=== PATIENT | male | born 1960 | race Caucasian/White ===

== ENCOUNTER → 2018-02-08 | Day surgery (SDC) | payer OTHER ==
[2018-01-29 11:42] VITALS: Ht 188 cm; Wt 114.5 kg
[~2018-02-08] VITALS: Ht 188 cm; Wt 114.5 kg
[~2018-02-08] MED LIST: ATOR10TA82 PO; CHOL1TAB46 PO; CLX/20 PO; CRAN1TAB9 PO; FERR1TAB23 PO; GARL1000 PO; GLIM4TAB PO; INSU100I23 SC; LISI-725 PO; METF-384 PO; METO25TA56 PO; MULTTAB58 PO; PANT40TA PO; SODIUM CHLORIDE 0.9% 500ML 500 ML IV ONE
--- NOTE | 2018-02-08 12:27 | Endo History and Physical ---
History & Physical Date of Service: Feb 08, 2018. Chief Complaint: hx carcinoid tumor of ileum,diarrhea Referring Physician: Dr. Tressa Pardo History of Present Illness 58 yo CM who presents for colonoscopy secondary to diarrhea and history of carcinoid tumor of the ileum. Past Medical History Diabetes, Gastrointestinal Disorder, Reflux, Cancer, Sleep Apnea, Hypertension, Kidney Disease, Liver Disease, Depression Past Surgical History Hx Cardiac Surgery: Yes (HEART CATH/NO STENTS) Hx Internal Defibrillator: No Hx Pacemaker: No Hx Abdominal Surgery: No Hx of Implantable Prosthesis: No Hx Post-Op Nausea and Vomiting: No Hx Cancer Surgery: Yes (PARTIAL COLON RESECTION (CARCINOID TUMOR REMOVAL)) Hx Thoracic Surgery: No Hx Orthopedic: No Hx Urinary Tract Surgery: No Family History Polyp Social History Smoking Status: Former Smoker Hx Substance Use: No Hx Alcohol Use: No Allergies Coded Allergies: NO KNOWN DRUG ALLERGIES (Verified Allergy, Unknown, ., 01/29/18) Current Medications Reported Home Medications Medications Dose Route/Sig Max Daily Dose Days Date Category Basaglar Kwikpen (Insulin Glargine) 100 Unit/Ml Inj 72 Units SC HS 01/29/18 Reported Lipitor (Atorvastatin Calcium) 10 Mg Tab 10 Mg PO DAILY 01/29/18 Reported Amaryl (Glimepiride) 4 Mg Tab 2 Mg PO BID 01/29/18 Reported Cranberry (Cranberry (Vaccinium Macrocarp) 300 Mg Tab 1 Tab PO DAILY 01/29/18 Reported Protonix (Pantoprazole Sodium) 40 Mg Tab 40 Mg PO BID 01/29/18 Reported Citalopram Hydrobromide (Citalopram) 20 Mg Tab 1 Tab PO QAM 07/17/16 Reported Vitamin D3 (Cholecalciferol) 5,000 Unit Tab 1 Tab PO QAM 07/17/16 Reported Glucophage (Metformin Hcl) 1,000 Mg Tab 1,000 Mg PO BID 03/08/15 Reported Multivitamin (Multiple Vitamin) 1 Tab Tab 1 Tab PO QAM 02/18/15 Reported Iron (Ferrous Sulfate) 325 Mg Tab 325 Mg PO QAM 02/18/15 Reported Garlic Oil 1000 (Garlic) 2 Mg Cap 1 Cap PO BID 02/18/15 Reported Lopressor (Metoprolol Tartrate) 25 Mg Tab 12.5 Mg PO BID 02/18/14 Reported Zestril (Lisinopril) 20 Mg Tab 20 Mg PO QAM 02/18/14 Reported Vital Signs Weight (Kilograms): 114.55 Height (Feet): 6 Height (Inches): 2 Date Time Temp Pulse Resp B/P (MAP) Pulse Ox O2 Delivery O2 Flow Rate FiO2 02/08/18 12:18 36.3 68 16 152/76 (101) 96 Room Air Physical Exam General Appearance: WD/WN, no apparent distress Respiratory/Chest: Auscultation: breath sounds normal Cardiovascular: Heart Auscultation: RRR Abdomen: Bowel Sounds: normal Inspection & Palpation: soft, non-distended, no tenderness, guarding & rebound Assessment and Plan Assessment: 58 yo CM who presents for colonoscopy secondary to diarrhea and history of carcinoid tumor of the ileum. Plan: Proceed with colonoscopy.
--- NOTE | 2018-02-08 13:22 | Discharge Instructions ---
Endoscopy Patient Instructions Date / Procedure(s) Performed Feb 08, 2018. Colonoscopy Allergy Information Coded Allergies: NO KNOWN DRUG ALLERGIES (Verified Allergy, Unknown, ., 01/29/18) Discharge Date / Findings Feb 08, 2018. Random colon biopsies Rectal polyps Internal hemorrhoids Medication Instructions Stopped Medication(s): last dose Metformin was on Sunday OK to resume all medications today as prescribed Reported Home Medications Medications Dose Route/Sig Max Daily Dose Days Date Category Basaglar Kwikpen (Insulin Glargine) 100 Unit/Ml Inj 72 Units SC HS 01/29/18 Reported Lipitor (Atorvastatin Calcium) 10 Mg Tab 10 Mg PO DAILY 01/29/18 Reported Amaryl (Glimepiride) 4 Mg Tab 2 Mg PO BID 01/29/18 Reported Cranberry (Cranberry (Vaccinium Macrocarp) 300 Mg Tab 1 Tab PO DAILY 01/29/18 Reported Protonix (Pantoprazole Sodium) 40 Mg Tab 40 Mg PO BID 01/29/18 Reported Citalopram Hydrobromide (Citalopram) 20 Mg Tab 1 Tab PO QAM 07/17/16 Reported Vitamin D3 (Cholecalciferol) 5,000 Unit Tab 1 Tab PO QAM 07/17/16 Reported Glucophage (Metformin Hcl) 1,000 Mg Tab 1,000 Mg PO BID 03/08/15 Reported Multivitamin (Multiple Vitamin) 1 Tab Tab 1 Tab PO QAM 02/18/15 Reported Iron (Ferrous Sulfate) 325 Mg Tab 325 Mg PO QAM 02/18/15 Reported Garlic Oil 1000 (Garlic) 2 Mg Cap 1 Cap PO BID 02/18/15 Reported Lopressor (Metoprolol Tartrate) 25 Mg Tab 12.5 Mg PO BID 02/18/14 Reported Zestril (Lisinopril) 20 Mg Tab 20 Mg PO QAM 02/18/14 Reported Provider Instructions Activity Restrictions - No exercising or heavy lifting for 24 hours. - Do not drink alcohol the day of the procedure. - Do not drive a car or operate machinery until the day after the procedure. - Do not make any important decisions or sign important papers in 24 hours after the procedure. Following Day: - Return to full activity which may include returning to work/school. Diet Start your diet with liquids and light foods (jello, soup, juice, toast). Then eat your usual diet if not nauseated. Treatment For Common After Affects For mild abdominal pain, bloating, or excessive gas: - Rest - Eat lightly - Lie on right side Follow-Up Information Follow-up with Dr. Tressa Pardo as scheduled Anesthesia Information What You Should Know You have had a procedure that required some medicine to reduce anxiety and discomfort. This treatment is called moderate sedation. After receiving the treatment, you may be sleepy, but you will be able to breathe on your own. The effects of the treatment may last for several hours. Follow these instructions along with Activity/Diet recommendations noted above: * Do NOT do anything where dizziness or clumsiness would be dangerous. * Rest quietly at home today, then you can be up and about tomorrow. * Have a responsible person stay with you the rest of today. * You may have had an I.V. today. If so, you may take the dressing off later today. Recommendations Call your doctor if: * Trouble breathing * Continuous vomiting for more than 24 hours * Temperature above 101 degrees * Severe abdominal pain or bloating * Pain not relieved by pain medicine ordered * There is increased drainage or redness from any incision * A large amount of rectal bleeding greater than 2-3 tablespoons. (If you had a polyp/s removed or have hemorrhoids, a small amount of blood - from the rectum is to be expected.) * You have any unanswered questions or concerns. IN THE EVENT OF A SERIOUS EMERGENCY, GO TO THE NEAREST EMERGENCY ROOM Your discharge instructions were prepared by provider Lance Arrington. Patient Instructions Signature Page Brock Moya Patient (or Guardian) Signature/Date: I have read and understand the instructions given to me by my caregivers. Caregiver/RN/Doctor Signature/Date: The above-named patient and/or guardian has received patient instructions on this date. + Original Patient Signature Page (only) stays with chart. Please make copy for patient.
--- NOTE | 2018-02-08 13:28 | Anesthesiology Progress Note ---
Anesthesia Post Op Note Date & Time Feb 08, 2018 at 13:28 Vital Signs Pain Intensity: 0 Vital Signs Past 12 Hours Date Time Temp Pulse Resp B/P (MAP) Pulse Ox O2 Delivery O2 Flow Rate FiO2 02/08/18 13:26 75 16 118/70 (86) 92 Room Air 02/08/18 12:18 36.3 68 16 152/76 (101) 96 Room Air Notes Mental Status: alert / awake / arousable, participated in evaluation Pt Amnestic to Procedure: Yes Nausea / Vomiting: adequately controlled Pain: adequately controlled Airway Patency, RR, SpO2: stable & adequate BP & HR: stable & adequate Hydration State: stable & adequate Anesthetic Complications: no major complications apparent
--- NOTE | 2018-02-08 13:35 | GI REPORT ---
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 Estimated Blood Loss: Estimated blood loss: none. Procedure: Pre-Anesthesia Assessment: - Prior to the procedure, a History and Physical was performed, and patient medications and allergies were reviewed. The patient's tolerance of previous anesthesia was also reviewed. The risks and benefits of the procedure and the sedation options and risks were discussed with the patient. All questions were answered, and informed consent was obtained. Prior Anticoagulants: The patient has taken no previous anticoagulant or antiplatelet agents. ASA Grade Assessment: III - A patient with severe systemic disease. After reviewing the risks and benefits, the patient was deemed in satisfactory condition to undergo the procedure. After I obtained informed consent, the scope was passed under direct vision. Throughout the procedure, the patient's blood pressure, pulse, and oxygen saturations were monitored continuously. The scope was introduced through the anus and advanced to the ileocolonic anastomosis. The colonoscopy was performed without difficulty. The patient tolerated the procedure well. The quality of the bowel preparation was good. The terminal ileum and the rectum were photographed. Findings: The perianal and digital rectal examinations were normal. There was evidence of a prior end-to-side ileo-colonic anastomosis in the ascending colon. This was patent and was characterized by healthy appearing mucosa. The anastomosis was traversed. Several random biopsies were obtained with cold forceps for histology in the entire colon. Three sessile polyps were found in the rectum. The polyps were 5 to 6 mm in size. These polyps were removed with a hot snare. Resection and retrieval were complete. Non-bleeding internal hemorrhoids were found during retroflexion. The hemorrhoids were small. Impression: - Patent end-to-side ileo-colonic anastomosis, characterized by healthy appearing mucosa. - Three 5 to 6 mm polyps in the rectum, removed with a hot snare. Resected and retrieved. - Non-bleeding internal hemorrhoids. - Several random biopsies were obtained in the entire colon. Recommendation: - Resume previous diet. - Continue present medications. - Repeat colonoscopy for surveillance based on pathology results. - Return to primary care physician as previously scheduled. Lance Arrington DO 02/08/2018 1:34:52 PM This report has been signed electronically. Note Initiated On: 02/08/2018 12:51 PM I attest to the content of the Intraoperative Record and orders documented therein, exceptions below
[2018-02-08 13:52] VITALS: BP 127/80; PULSE 72; O2SAT 94
== END | disposition home or self-care (01) ==
LOC: C.GI 11:47
PROVIDERS: ATTEND Internal Medicine
DX: D3A.012 Benign carcinoid tumor of the ileum (principal); R19.7 Diarrhea, unspecified; K62.1 Rectal polyp; K64.8 Other hemorrhoids; I10 Essential (primary) hypertension; Z87.891 Personal history of nicotine dependence; E11.9 Type 2 diabetes mellitus without complications; E78.5 Hyperlipidemia, unspecified; Z90.89 Acquired absence of other organs; Z79.4 Long term (current) use of insulin; Z79.899 Other long term (current) drug therapy; E66.9 Obesity, unspecified; Z68.32 Body mass index [BMI] 32.0-32.9, adult; Z98.818 Other dental procedure status; Z83.71 Family history of colonic polyps; Z82.49 Family history of ischemic heart disease and other diseases of the circulatory system; Z83.3 Family history of diabetes mellitus; Z80.9 Family history of malignant neoplasm, unspecified; K21.9 Gastro-esophageal reflux disease without esophagitis; Z79.84 Long term (current) use of oral hypoglycemic drugs